=== PATIENT | male | born 1955 | race Two or more races ===

== ENCOUNTER 2025-02-28 18:43 | Emergency (ER) | payer MEDICARE, OTHER ==
[~2025-02-28] VITALS: Ht 167.6 cm; Wt 81.6 kg
[~2025-02-28 18:43] MED LIST: FENO160T PO; GLIP5TAB13 PO; INSU100I26 SQ; LISI10TA29 PO; METF-441 PO; PROP10TA10 PO
[2025-02-28 18:56] VITALS: BP 155/99; TEMP 98; O2SAT 99
[2025-02-28 19:34] LABS: PLATELET COUNT (AUTO) 193 K/uL (150-450); RED BLOOD CELL COUNT(AUTO) 5.46 MIL/uL (4.5-6.0); RED CELL DISTRIBUTION WIDTH 14.2 % (11.5-15.0); WHITE BLOOD COUNT (AUTO) 8.9 K/uL (4.3-11.0)
[2025-02-28 19:46] LABS: CALCIUM, SERUM 9.3 mg/dL (8.5-10.1); CREATININE 1.0 mg/dL (0.6-1.3); SODIUM SERUM 139.0 mmol/L (136-145); UREA NITROGEN, BLOOD 10.0 mg/dL (7-18)
[2025-02-28] MEDS ORDERED: AMOX500T2 PO (20:17)
[2025-02-28] MEDS ORDERED: ACET-2605 PO (20:17)
== END 2025-02-28 20:22 | disposition home or self-care (01) ==
LOC: ER 18:57
DX: M27.69 Other endosseous dental implant failure (principal); R68.83 Chills (without fever); F41.9 Anxiety disorder, unspecified; E11.9 Type 2 diabetes mellitus without complications; Z79.84 Long term (current) use of oral hypoglycemic drugs; Z79.899 Other long term (current) drug therapy; Z87.891 Personal history of nicotine dependence
CPT/HCPCS: 36415; 80048-TC; 85025-TC

== ENCOUNTER 2025-04-15 01:09 | Emergency (ER) | payer MEDICARE, OTHER ==
[~2025-04-15] VITALS: Ht 170.2 cm; Wt 83.9 kg
[~2025-04-15 01:09] MED LIST changes: +ACET-2605 PO; +AMOX500T2 PO
[2025-04-15 02:16] LABS: PLATELET COUNT (AUTO) 185 K/uL (150-450); RED BLOOD CELL COUNT(AUTO) 5.15 MIL/uL (4.5-6.0); RED CELL DISTRIBUTION WIDTH 13.6 % (11.5-15.0); WHITE BLOOD COUNT (AUTO) 7.1 K/uL (4.3-11.0)
[2025-04-15 02:18] LABS: ERYTHROCYTE SEDIMENTATION RATE 7 MM/HR (0-20)
[2025-04-15 02:25] LABS: CALCIUM, SERUM 9.0 mg/dL (8.5-10.1); CREATININE 1.0 mg/dL (0.6-1.3); SODIUM SERUM 140.0 mmol/L (136-145); UREA NITROGEN, BLOOD 12.0 mg/dL (7-18)
[2025-04-15 02:27] LABS: INR 1.01 (0.91-1.10)
[2025-04-15] MEDS: IV NS 0.9% 1,000 ML BAG IV ONE (03:14)
[2025-04-15] MEDS ORDERED: IBUP-1490 PO (03:29)
[2025-04-15 03:42] VITALS: BP 142/77; TEMP 98.9; O2SAT 94
== END 2025-04-15 03:42 | disposition home or self-care (01) ==
LOC: ER 01:15
DX: R51.9 Headache, unspecified (principal); E11.65 Type 2 diabetes mellitus with hyperglycemia; I65.21 Occlusion and stenosis of right carotid artery; I10 Essential (primary) hypertension; Z79.84 Long term (current) use of oral hypoglycemic drugs; Z79.899 Other long term (current) drug therapy; Z87.891 Personal history of nicotine dependence
CPT/HCPCS: 99285; 70498; 96360; 71045; 93005; 70496; 85025; 80048; 85652; 36415; 85730; 82962; 70450; J7030; J7050; Q9967

== ENCOUNTER 2025-05-20 03:56 | Inpatient (IN) | payer MEDICARE, OTHER ==
[~2025-05-20] VITALS: Ht 170.2 cm; Wt 81.2 kg
[~2025-05-20 03:56] MED LIST changes: +IBUP-1490 PO
[2025-05-20] MEDS ORDERED: KETOROLAC TROMETHAMINE 15 MG/ML VIAL ONE (05:44)
[2025-05-20] MEDS ORDERED: oxyCODONE/APAP (5/325 MG) 1 UDTAB TABLET ONE (05:45)
[2025-05-20] MEDS: KETOROLAC TROMETHAMINE 15 MG/ML VIAL IV ONE (05:54)
[2025-05-20] MEDS: oxyCODONE/APAP (5/325 MG) 1 UDTAB TABLET PO ONE (05:54)
[2025-05-20 06:03] LABS: PLATELET COUNT (AUTO) 255 K/uL (150-450); RED BLOOD CELL COUNT(AUTO) 5.32 MIL/uL (4.5-6.0); RED CELL DISTRIBUTION WIDTH 13.3 % (11.5-15.0); WHITE BLOOD COUNT (AUTO) 9.5 K/uL (4.3-11.0)
[2025-05-20 06:05] VITALS: O2SAT 98
[2025-05-20 06:09] LABS: CALCIUM, SERUM 8.7 mg/dL (8.5-10.1); CREATININE 1.2 mg/dL (0.6-1.3); SODIUM SERUM 137 mmol/L (136-145); UREA NITROGEN, BLOOD 15 mg/dL (7-18)
[2025-05-20 06:14] LABS: ASPARTATE AMINOTRANSFERASE 20 U/L (15-37); TOTAL PROTEIN, SERUM 6.6 g/dL (6.4-8.2)
[2025-05-20] MEDS ORDERED: INSU100I30 SQ (08:23)
[2025-05-20] MEDS ORDERED: CHOL200059 PO (08:23)
[2025-05-20] MEDS ORDERED: METF-442 PO (08:23)
[2025-05-20] MEDS ORDERED: GLIP10TA11 PO (08:23)
[2025-05-20 09:00] VITALS: BP 136/85; TEMP 97.7; O2SAT 100
[2025-05-20] MEDS ORDERED: Z GUARD REMEDY 4 OZ OINT TP PRN (10:30)
[2025-05-20] MEDS ORDERED: ONDANSETRON HCL/PF 4 MG/2 ML VIAL IVP PRN (10:30)
[2025-05-20 11:07] LABS: IRON, SERUM 50.0 ug/dl (50-175)
[2025-05-20 11:17] LABS: LDL 83.0 mg/dL (0-99)
[2025-05-20] MEDS: oxyCODONE IR immediate release 5 MG TABLET PO PRN (11:26)
[2025-05-20] MEDS: ENOXAPARIN SODIUM 40 MG/0.4 ML DISP.SYRIN SQ SCH (11:27)
[2025-05-20] MEDS ORDERED: IOHEXOL-300 100 ML VIAL IV ONE (12:08)
[2025-05-20] MEDS ORDERED: IV NS 0.9% 250 ML IV ONE (12:08)
[2025-05-20 16:00] VITALS: BP 144/90; TEMP 97.3; O2SAT 99
[2025-05-20 18:58] LABS: FREE PSA < 0.06 ng/mL (0.00-45)
[2025-05-20 19:22] LABS: PROSTATE SPECIFIC ANTIGEN SCR < 0.13 ng/mL (0.00-4.00)
[2025-05-20 20:00] VITALS: BP 137/85; TEMP 97.5; O2SAT 97
[2025-05-20] MEDS: BLOOD SUGAR DIAGNOSTIC 1 EACH STRIP IN SCH (21:58)
[2025-05-20] MEDS ORDERED: DEXTROSE 50%-WATER 50 ML DISP.SYRIN IV PRN (22:00)
[2025-05-20] MEDS: INSULIN REGULAR, HUMAN 100 UNIT/ML 3 ML VIAL SQ PRN (22:01)
[2025-05-20] MEDS: INSULIN GLARGINE, 100 UNIT/ML CARTRIDGE SQ SCH (22:01)
[2025-05-21] MEDS: ALPRAZOLAM 0.25 MG TABLET PO ONE (04:11)
[2025-05-21 05:10] LABS: CARCINOEMBRYONIC ANTIGEN (CEA) 10.1 ng/mL (0.0-4.7)
[2025-05-21 06:03] LABS: PLATELET COUNT (AUTO) 257 K/uL (150-450); RED BLOOD CELL COUNT(AUTO) 5.36 MIL/uL (4.5-6.0); RED CELL DISTRIBUTION WIDTH 13.4 % (11.5-15.0); WHITE BLOOD COUNT (AUTO) 10.1 K/uL (4.3-11.0)
[2025-05-21 06:16] LABS: ASPARTATE AMINOTRANSFERASE 23.0 U/L (15-37); CALCIUM, SERUM 8.8 mg/dL (8.5-10.1); CREATININE 0.9 mg/dL (0.6-1.3); PHOSPHORUS 3.3 mg/dL (2.5-4.9); SODIUM SERUM 137.0 mmol/L (136-145); TOTAL PROTEIN, SERUM 6.7 g/dL (6.4-8.2); UREA NITROGEN, BLOOD 12.0 mg/dL (7-18)
[2025-05-21 08:00] VITALS: BP 158/96; TEMP 97.8; O2SAT 99
[2025-05-21] MEDS: PANTOPRAZOLE 40 MG TABLET.DR PO SCH (08:42)
[2025-05-21] MEDS: SENNOSIDES/DOCUSATE SODIUM 1 TAB TABLET PO SCH (08:42)
[2025-05-21] MEDS: FENOFIBRATE NANOCRYS (145 MG) 145 MG TABLET PO SCH (08:42)
[2025-05-21] MEDS: INSULIN GLARGINE, 100 UNIT/ML CARTRIDGE SQ SCH (08:54)
[2025-05-21] MEDS: NEOMY SULF/BACITRAC ZN/POLY 15 GM TUBE TP SCH (09:09)
[2025-05-21] MEDS ORDERED: IOHEXOL-300 100 ML VIAL IV ONE (12:57)
[2025-05-21] MEDS ORDERED: IV NS 0.9% 250 ML IV ONE (12:58)
[2025-05-21 16:00] VITALS: BP 136/89; TEMP 97.3; O2SAT 98
[2025-05-21 20:00] VITALS: BP 139/89; TEMP 97.9; O2SAT 99
[2025-05-21] MEDS: ACETAMINOPHEN 325 MG TABLET PO PRN (20:20)
[2025-05-22 04:08] LABS: HEPATITIS B CORE AB, TOTAL Negative (Negative); HEPATITIS B SURFACE AB (QUAL) Non Reactive (.)
[2025-05-22 08:00] VITALS: BP 132/89; TEMP 97.5; O2SAT 98
[2025-05-22 09:12] LABS: FREE KAPPA LT CHAINS SERUM 21.1 mg/L (3.3-19.4); FREE LAMBDA LT CHAIN SERUM 21.8 mg/L (5.7-26.3); KAPPA/LAMBDA RATIO SERUM 0.97 (0.26-1.65)
[2025-05-22 10:07] LABS: IMMUNOGLOBULIN A, SERUM 320 mg/dL (61-437); IMMUNOGLOBULIN M, SERUM 75 mg/dL (20-172)
[2025-05-22] MEDS ORDERED: CELE100C PO (12:40)
[2025-05-22] MEDS ORDERED: PANT40TA2 PO (12:40)
[2025-05-22] MEDS ORDERED: GABA-532 PO (12:40)
[2025-05-22 20:11] LABS: BETA-2 MICROGLOBULIN, SERUM 1.8 mg/L (0.6-2.4)
== END 2025-05-22 16:32 | disposition home health service (06) | DRG 375 ==
LOC: ER 04:01 → MED 08:42
PROVIDERS: ADMIT Nurse Practitioner Acute Care; ATTEND Nurse Practitioner Acute Care
DX: C78.6 Secondary malignant neoplasm of retroperitoneum and peritoneum (principal); C79.51 Secondary malignant neoplasm of bone; M48.56XA Collapsed vertebra, not elsewhere classified, lumbar region, initial encounter for fracture; R59.0 Localized enlarged lymph nodes; J84.10 Pulmonary fibrosis, unspecified; E11.65 Type 2 diabetes mellitus with hyperglycemia; I10 Essential (primary) hypertension; E11.40 Type 2 diabetes mellitus with diabetic neuropathy, unspecified; Z79.84 Long term (current) use of oral hypoglycemic drugs; F17.200 Nicotine dependence, unspecified, uncomplicated; Z79.899 Other long term (current) drug therapy; Z79.4 Long term (current) use of insulin; C80.1 Malignant (primary) neoplasm, unspecified; F41.9 Anxiety disorder, unspecified; L03.011 Cellulitis of right finger; S67.190A Crushing injury of right index finger, initial encounter; X58.XXXA Exposure to other specified factors, initial encounter; Y92.9 Unspecified place or not applicable; W23.0XXA Caught, crushed, jammed, or pinched between moving objects, initial encounter
CPT/HCPCS: 36415; 71260-TC; 73201-TC; 76870-TC; 80048-TC; 80053-TC; 80061-TC; 80076-TC; 82105; 82232; 82378; 82784; 82962-TC; 83540-TC; 83615-TC; 83690-TC; 83735-TC; 84100-TC; 84153-TC; 84154-TC; 84155; 84165; 84443-TC; 84484-TC; 84702-TC; 85025-TC; 85652-TC; 86301; 86334; 86704; 86706; 86803; 87340; G0378; J1650; J1815; J1885; J7050; Q9967

== ENCOUNTER 2025-06-20 14:42 | Inpatient (IN) | payer MEDICARE, OTHER ==
[~2025-06-20] VITALS: Ht 167.6 cm; Wt 81.2 kg
[~2025-06-20 14:42] MED LIST changes: -ACET-2605 PO; -AMOX500T2 PO; +CELE100C PO; +CHOL200059 PO; +GABA-532 PO; +GLIP10TA11 PO; -GLIP5TAB13 PO; -IBUP-1490 PO; +INSU100I30 SQ; -LISI10TA29 PO; -METF-441 PO; +METF-442 PO; +PANT40TA2 PO; -PROP10TA10 PO
[2025-06-20] MEDS: ONDANSETRON HCL/PF 4 MG/2 ML VIAL IVP ONE (16:00)
[2025-06-20] MEDS: IV NS 0.9% 1,000 ML BAG IV ONE (16:00)
[2025-06-20] MEDS ORDERED: ONDANSETRON HCL/PF 4 MG/2 ML VIAL ONE (16:02)
[2025-06-20 16:16] LABS: PLATELET COUNT (AUTO) 286 K/uL (150-450); RED BLOOD CELL COUNT(AUTO) 5.14 MIL/uL (4.5-6.0); RED CELL DISTRIBUTION WIDTH 13.5 % (11.5-15.0); WHITE BLOOD COUNT (AUTO) 9.4 K/uL (4.3-11.0)
[2025-06-20 16:22] LABS: CALCIUM, SERUM 9.1 mg/dL (8.5-10.1); CREATININE 1.0 mg/dL (0.6-1.3); SODIUM SERUM 135 mmol/L (136-145); UREA NITROGEN, BLOOD 10 mg/dL (7-18)
[2025-06-20] MEDS ORDERED: IOHEXOL-300 100 ML VIAL IV ONE (16:25)
[2025-06-20] MEDS ORDERED: IV NS 0.9% 250 ML IV ONE (16:25)
[2025-06-20] MEDS ORDERED: CT SWABBABLE VALVE TRANS SET 1 EA INFUS.SET MC ONE (16:25)
[2025-06-20 16:27] LABS: ASPARTATE AMINOTRANSFERASE 18 U/L (15-37); TOTAL PROTEIN, SERUM 6.9 g/dL (6.4-8.2)
[2025-06-20 16:31] LABS: APPEARANCE,URINE CLEAR (CLEAR); BLOOD, URINE NEGATIVE Ery/uL (NEGATIVE); LEUKOCYTE ESTERASE ,URINE NEGATIVE (NEGATIVE); NITRITE, URINE NEGATIVE (NEGATIVE); UGLUCOSE 2+ mg/dL (NEGATIVE)
[2025-06-20 16:45] LABS: ADD URINE CULTURE NO; SQUAMOUS EPITHELIAL CELL,UR 0-2 /HPF (None Seen)
[2025-06-20 22:30] VITALS: BP_SYST 116; BP_SYST 131; BP_SYST 141; BP_DIAS 73; BP_DIAS 78; BP_DIAS 84; TEMP 98.1; O2SAT 99
[2025-06-20] MEDS ORDERED: ONDANSETRON HCL/PF 4 MG/2 ML VIAL IVP PRN (22:30)
[2025-06-20] MEDS ORDERED: MAG HYDROX/AL HYDROX/SIMETH 30 ML UDC PO PRN (22:30)
[2025-06-20] MEDS ORDERED: DEXTROSE 50%-WATER 50 ML DISP.SYRIN IV PRN (22:30)
[2025-06-20] MEDS ORDERED: IV NS 0.9% 1,000 ML IV PRN (22:30)
[2025-06-20] MEDS: ACETAMINOPHEN 325 MG TABLET PO PRN (22:52)
[2025-06-20] MEDS: MAGNESIUM HYDROXIDE 30 ML UDC PO PRN (22:52)
[2025-06-20] MEDS: TRAZODONE 50 MG TABLET PO PRN (22:52)
[2025-06-20] MEDS: SENNOSIDES 8.6 MG TABLET PO SCH (22:52)
[2025-06-21] VITALS: BP 132/79; TEMP 98.1; O2SAT 97
[2025-06-21 04:00] VITALS: BP 119/73; TEMP 97.9; O2SAT 98
[2025-06-21] MEDS: BLOOD SUGAR DIAGNOSTIC 1 EACH STRIP IN SCH (06:41)
[2025-06-21] MEDS: INSULIN REGULAR, HUMAN 100 UNIT/ML 3 ML VIAL SQ PRN (06:43)
[2025-06-21 07:12] LABS: PLATELET COUNT (AUTO) 277 K/uL (150-450); RED BLOOD CELL COUNT(AUTO) 4.93 MIL/uL (4.5-6.0); RED CELL DISTRIBUTION WIDTH 13.5 % (11.5-15.0); WHITE BLOOD COUNT (AUTO) 9.2 K/uL (4.3-11.0)
[2025-06-21 07:14] LABS: CALCIUM, SERUM 8.9 mg/dL (8.5-10.1); CREATININE 0.9 mg/dL (0.6-1.3); PHOSPHORUS 3.3 mg/dL (2.5-4.9); SODIUM SERUM 141.0 mmol/L (136-145); UREA NITROGEN, BLOOD 9.0 mg/dL (7-18)
[2025-06-21 08:00] VITALS: BP 132/77; TEMP 97.6; O2SAT 99
[2025-06-21] MEDS: DOCUSATE SODIUM 100 MG CAPSULE PO SCH (08:33)
[2025-06-21] MEDS: PANTOPRAZOLE 40 MG TABLET.DR PO SCH (08:33)
[2025-06-21] MEDS ORDERED: GABA-532 PO (09:11)
[2025-06-21] MEDS ORDERED: PANT40TA49 PO (09:11)
[2025-06-21] MEDS ORDERED: MOUNJARO SQ (09:11)
[2025-06-21] MEDS: TRAMADOL HCL 50 MG TABLET PO PRN (10:18)
[2025-06-21] MEDS: LIDOCAINE 5% (PATCH) 1 EA PATCH TP SCH (10:18)
[2025-06-21 12:00] VITALS: BP 120/73; TEMP 97.4; O2SAT 97
[2025-06-21] MEDS: GABAPENTIN 100 MG CAPSULE PO SCH (12:50)
[2025-06-21] MEDS: CELECOXIB 100 MG CAPSULE PO PRN (14:39)
[2025-06-21 16:00] VITALS: BP 127/99; TEMP 98.8; O2SAT 97
[2025-06-21] MEDS: POLYETHYLENE GLYCOL 3350 17 GM POWD.PACK PO PRN (16:11)
[2025-06-21] MEDS ORDERED: POLYETHYLENE GLYCOL 3350 17 GM POWD.PACK PO PRN (16:30)
[2025-06-21 20:00] VITALS: BP 133/74; TEMP 98.6; O2SAT 96
[2025-06-21] MEDS: INSULIN GLARGINE, 100 UNIT/ML CARTRIDGE SQ SCH (21:58)
[2025-06-22 04:00] VITALS: BP 121/77; TEMP 97.5; O2SAT 95
[2025-06-22 06:43] LABS: PLATELET COUNT (AUTO) 281 K/uL (150-450); RED BLOOD CELL COUNT(AUTO) 4.86 MIL/uL (4.5-6.0); RED CELL DISTRIBUTION WIDTH 13.3 % (11.5-15.0); WHITE BLOOD COUNT (AUTO) 9.0 K/uL (4.3-11.0)
[2025-06-22 07:08] LABS: CALCIUM, SERUM 8.8 mg/dL (8.5-10.1); CREATININE 0.9 mg/dL (0.6-1.3); PHOSPHORUS 3.1 mg/dL (2.5-4.9); SODIUM SERUM 137.0 mmol/L (136-145); UREA NITROGEN, BLOOD 10.0 mg/dL (7-18)
[2025-06-22] MEDS ORDERED: PANTOPRAZOLE 40 MG TABLET.DR PO SCH (07:30)
[2025-06-22] MEDS: CHOLECALCIFEROL 1,000 UNIT TABLET (VIT D3) PO SCH (09:07)
[2025-06-22] MEDS: FENOFIBRATE NANOCRYS (145 MG) 145 MG TABLET PO SCH (09:08)
[2025-06-22 09:19] VITALS: BP 116/76; TEMP 97.5; O2SAT 97
[2025-06-22] MEDS ORDERED: INSU100I30 SQ (09:57)
[2025-06-22] MEDS ORDERED: NA PHOS,M-B/NA PHOS,DI-BA 1 EA ENEMA RC PRN (10:30)
[2025-06-22 14:38] VITALS: TEMP 97.5
== END 2025-06-22 14:53 | disposition home health service (06) | DRG 640 ==
LOC: ER 14:44 → TELE1 21:44 → MEDSG1 06-21 12:28
PROVIDERS: ATTEND Nurse Practitioner Family
DX: E86.0 Dehydration (principal); K68.9 Other disorders of retroperitoneum; C85.99 Non-Hodgkin lymphoma, unspecified, extranodal and solid organ sites; C79.51 Secondary malignant neoplasm of bone; I96 Gangrene, not elsewhere classified; E44.1 Mild protein-calorie malnutrition; E46 Unspecified protein-calorie malnutrition; C80.1 Malignant (primary) neoplasm, unspecified; E88.09 Other disorders of plasma-protein metabolism, not elsewhere classified; E11.65 Type 2 diabetes mellitus with hyperglycemia; I10 Essential (primary) hypertension; E66.9 Obesity, unspecified; E11.42 Type 2 diabetes mellitus with diabetic polyneuropathy; Z79.4 Long term (current) use of insulin; Z79.84 Long term (current) use of oral hypoglycemic drugs; Z79.899 Other long term (current) drug therapy; R59.0 Localized enlarged lymph nodes; K59.00 Constipation, unspecified; G89.29 Other chronic pain; Z83.3 Family history of diabetes mellitus; F12.90 Cannabis use, unspecified, uncomplicated; Z68.29 Body mass index [BMI] 29.0-29.9, adult; F17.200 Nicotine dependence, unspecified, uncomplicated; J84.10 Pulmonary fibrosis, unspecified; N50.82 Scrotal pain
CPT/HCPCS: 36415; 70450-TC; 71045-TC; 80048-TC; 80076-TC; 81001; 82962-TC; 83690-TC; 83735-TC; 84100-TC; 84443-TC; 84484-TC; 85025-TC; 93307-TC; 97110-TC; 97116-TC; 97530-TC; A4223; G0378; J1815; J2405; J7030; J7050; Q9967

== ENCOUNTER 2025-07-09 00:05 | Emergency (ER) | payer MEDICARE, OTHER ==
[~2025-07-09] VITALS: Ht 170.2 cm; Wt 81.6 kg
[~2025-07-09 00:05] MED LIST changes: -INSU100I26 SQ; -METF-442 PO; +MOUNJARO SQ; -PANT40TA2 PO; +PANT40TA49 PO
--- NOTE | 2025-07-09 00:45 | NUR ---
PT C/O DIZZINESS, RT SHOULDER PAIN, HOT/COLD FEELING X 3 DAYS. [id number] ETA
--- NOTE | 2025-07-09 00:53 | NUR ---
[id number] AWARE
[2025-07-09] MEDS ORDERED: NAPROXEN 250 MG TABLET ONE (00:57)
[2025-07-09] MEDS ORDERED: ESCITALOPRAM OXALATE (10 MG) 10 MG TABLET ONE (00:57)
[2025-07-09] MEDS: ESCITALOPRAM OXALATE (10 MG) 10 MG TABLET PO ONE (01:04)
[2025-07-09] MEDS: NAPROXEN 250 MG TABLET PO ONE (01:04)
[2025-07-09 01:13] LABS: PLATELET COUNT (AUTO) 301 K/uL (150-450); RED BLOOD CELL COUNT(AUTO) 4.76 MIL/uL (4.5-6.0); RED CELL DISTRIBUTION WIDTH 14.0 % (11.5-15.0); WHITE BLOOD COUNT (AUTO) 6.4 K/uL (4.3-11.0)
[2025-07-09] MEDS ORDERED: ESCI10TA PO (01:18)
[2025-07-09 01:25] LABS: ASPARTATE AMINOTRANSFERASE 19.0 U/L (15-37); CALCIUM, SERUM 8.9 mg/dL (8.5-10.1); CREATININE 1.0 mg/dL (0.6-1.3); SODIUM SERUM 135.0 mmol/L (136-145); TOTAL PROTEIN, SERUM 6.2 g/dL (6.4-8.2); UREA NITROGEN, BLOOD 17.0 mg/dL (7-18)
[2025-07-09] MEDS ORDERED: INSULIN REGULAR, HUMAN 100 UNIT/ML 10 ML VIAL ONE (01:50)
[2025-07-09] MEDS: INSULIN REGULAR, HUMAN 100 UNIT/ML 10 ML VIAL SQ ONE (01:55)
--- NOTE | 2025-07-09 02:46 | NUR ---
Patient discharged to home in stable condition. Written and verbal after care instructions given. Patient verbalizes understanding of instruction.
[2025-07-09 02:49] VITALS: BP 130/65; TEMP 98; O2SAT 99
== END 2025-07-09 02:50 | disposition home or self-care (01) ==
LOC: ER 00:07
DX: F41.9 Anxiety disorder, unspecified (principal); E11.65 Type 2 diabetes mellitus with hyperglycemia; I10 Essential (primary) hypertension; Z79.84 Long term (current) use of oral hypoglycemic drugs; Z91.048 Other nonmedicinal substance allergy status; Z87.891 Personal history of nicotine dependence; Z79.899 Other long term (current) drug therapy
CPT/HCPCS: 99283; 85025; 83735; 36415; 80053; 82962 ×2; J1815

== ENCOUNTER 2025-07-09 16:00 | Emergency (ER) | payer MEDICARE, OTHER ==
[~2025-07-09] VITALS: Ht 172.7 cm; Wt 90.7 kg
[~2025-07-09 16:00] MED LIST changes: +ESCI10TA PO
[2025-07-09 16:14] VITALS: TEMP 98.5
[2025-07-09 16:53] LABS: PLATELET COUNT (AUTO) 289 K/uL (150-450); RED BLOOD CELL COUNT(AUTO) 4.70 MIL/uL (4.5-6.0); RED CELL DISTRIBUTION WIDTH 13.5 % (11.5-15.0); WHITE BLOOD COUNT (AUTO) 7.3 K/uL (4.3-11.0)
[2025-07-09] MEDS: IV NS 0.9% 1,000 ML BAG IV ONE (16:58)
[2025-07-09 17:05] LABS: CALCIUM, SERUM 8.6 mg/dL (8.5-10.1); CREATININE 1.1 mg/dL (0.6-1.3); SODIUM SERUM 136 mmol/L (136-145); UREA NITROGEN, BLOOD 15 mg/dL (7-18)
[2025-07-09 19:06] VITALS: BP 121/75; O2SAT 97
== END 2025-07-09 19:07 | disposition home or self-care (01) ==
LOC: ER 16:12
DX: R00.2 Palpitations (principal); R51.9 Headache, unspecified; R20.2 Paresthesia of skin; I10 Essential (primary) hypertension; E11.9 Type 2 diabetes mellitus without complications; Z79.84 Long term (current) use of oral hypoglycemic drugs; Z87.891 Personal history of nicotine dependence; Z79.899 Other long term (current) drug therapy; Z91.048 Other nonmedicinal substance allergy status
CPT/HCPCS: 99285; 96360; 71045; 93005 ×2; 85025; 80048; 36415; 84484 ×2; J7030